=== PATIENT | female | born 2000 | race Two or more races ===

== ENCOUNTER 2023-08-15 18:43 | Emergency (ER) | payer SELFPAY ==
[~2023-08-15] VITALS: Ht 165.1 cm; Wt 86.5 kg
[2023-08-15 18:51] VITALS: BP 125/85; PULSE 82; RESP 20; O2SAT 98
== END 2023-08-15 20:05 | disposition left against medical advice (07) ==
LOC: ER 18:43
DX: M54.2 Cervicalgia (principal); M54.6 Pain in thoracic spine; Z53.21 Procedure and treatment not carried out due to patient leaving prior to being seen by health care provider; V49.69XA Unspecified car occupant injured in collision with other motor vehicles in traffic accident, initial encounter; Y93.89 Activity, other specified; Y92.89 Other specified places as the place of occurrence of the external cause; Y99.8 Other external cause status